=== PATIENT | male | born 2000 | race American Indian/Alaskan Native ===

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

== ENCOUNTER 2024-06-30 06:49 | Emergency (ER) | payer MEDICAID, OTHER ==
[2024-06-30 07:02] VITALS: BP 138/79; PULSE 84
[2024-06-30] MEDS ORDERED: Ketorolac 30 MG/ML SDV ONE (07:29)
[2024-06-30] MEDS: Dexamethasone 4 MG/ML SDV PO ONE (07:33)
[2024-06-30] MEDS: Ketorolac 30 MG/ML SDV IM ONE (07:34)
[2024-06-30] MEDS ORDERED: Amoxicillin/Clavulanate K 875-125 MG Tab PO ONE (08:00)
== END 2024-06-30 08:13 | disposition home or self-care (01) ==
LOC: DL.ED 06:49
DX: J36 Peritonsillar abscess (principal); Z79.899 Other long term (current) drug therapy
CPT/HCPCS: 87081; 87430; 87635; 96372; 99283; J1885; J8540; U0002

== ENCOUNTER 2024-08-16 15:18 | Emergency (ER) | payer OTHER ==
[2024-08-16 15:38] VITALS: BP 133/72; PULSE 70
== END 2024-08-16 16:44 | disposition home or self-care (01) ==
LOC: DL.ED 15:18
DX: S52.515A Nondisplaced fracture of left radial styloid process, initial encounter for closed fracture (principal); W01.0XXA Fall on same level from slipping, tripping and stumbling without subsequent striking against object, initial encounter
CPT/HCPCS: 29125; 73110-LT; 99283-25